=== PATIENT | female | born 1955 | race Caucasian/White ===

== ENCOUNTER → 2017-09-15 | Outpatient (CLI) | payer OTHER ==
--- NOTE | 2017-09-15 12:01 | USB ---
Reason for exam: clinical finding. History: Patient is postmenopausal. Family history of premenopausal breast cancer in aunt at age 40, breast cancer in 2 other aunts, premenopausal breast cancer in cousin, and breast cancer in grandmother at age 50. Benign stereotactic core biopsy of the right breast, July 03, 1999. Core biopsy of the right breast. 2 excisional biopsies of the right breast. Indicated problem(s): non-bloody discharge in the left breast. Physical Findings: Nurse Summary: left breast movable palpable 2 o'clock 0.5 x 1cm, tender, bilateral tenderness (nurse ts). US Breast LT Left breast ultrasound includes all four quadrants, the retroareolar region and axilla. Finding demonstrates a 0.2 x 0.2 x 0.4cm lesion too small to characterize at 1 o'clock and a 0.8 x 0.3 x 1.0cm mixed lesion at the nipple. Attempt for 2 site biopsy as the larger mass could represent a dilate duct with complex debris/hemorrhage. These results were verbally communicated with the patient and result sheet given to the patient on 09/15/17. ASSESSMENT: Suspicious, BI-RAD 4 RECOMMENDATION: Ultrasound core biopsy of the left breast. (2 sites) Called Dr. Fraga with mammographic findings and has scheduled an appointment for the patient for 10/13/17 at 10:[address] Maharaj. Biopsy scheduled for 09/21/17 at 2:20. PRELIMINARY REPORT CALLED AND FAXED TO DR. MAHARAJ ON 09/15/17.
== END | disposition home or self-care (01) ==
LOC: RADUSWWP 09:43
PROVIDERS: ATTEND Family Medicine
DX: N64.4 Mastodynia (principal)

== ENCOUNTER → 2017-09-21 | Day surgery (SDC) | payer OTHER ==
[2017-09-21 13:45] VITALS: BP 123/71; PULSE 75; RESP 12; TEMP 98
--- NOTE | 2017-09-21 15:13 | USB ---
EXAMINATION TYPE: US discontinued breast bx LT DATE OF EXAM: 09/21/2017 COMPARISON: Prior ultrasound of the left breast CLINICAL HISTORY: 2 x 2 x 4 mm mass at the 1:00 position in the region of palpable abnormality per nu rsing on the prior exam was unable to be redemonstrated by 2 sonographers including the initial sonog rapher on the exam of 09/15/2017, and per the nurse who originally palpated the mass as well as by myszion Meneses. This may represent a collapsed/resolved cyst and short-term six-month follow-up is recom mended to ensure resolution. Additionally the second retroareolar questionable intraductal mass versu s dilated duct with debris/hemorrhage in the retroareolar region upon repeat imaging at real-time wit h the escalator constructor and myself appears as multiple septations without distinct mass. No vascularity is seen. No suspicious area to biopsy was identified. Therefore findings were discussed with the patient . Additionally the patient described left breast clear nipple discharge once. The patient was instruc yasmeen to closely monitor this nipple discharge and is reproducible ductogram could be performed. IMPRESSION: BI-RADS 2-No identifiable suspicious sonographic mass. No sonographic evidence of malign dann. Clinical management is recommended for this patient's left nipple discharge and if persistent d uctogram should be performed.
== END ==
LOC: RADUSWWP 13:19
PROVIDERS: ATTEND Surgery
DX: N63.21 Unspecified lump in the left breast, upper outer quadrant (principal); R92.8 Other abnormal and inconclusive findings on diagnostic imaging of breast; N64.52 Nipple discharge; Z53.8 Procedure and treatment not carried out for other reasons

== ENCOUNTER → 2017-11-04 | Outpatient (CLI) | payer OTHER | END | disposition home or self-care (01) | LOC: LABWHC1 11:17 | DX: R19.4 Change in bowel habit (principal) | CPT/HCPCS: 82272; 83630; 87324 ==

== ENCOUNTER 2017-12-26 11:46 | Day surgery (SDC) | payer OTHER ==
[2017-12-22 10:42] VITALS: BMI 19.5
[~2017-12-26 11:46] MED LIST: LACTATED RINGERS 1,000 ML IV SCH
[2017-12-26 13:14] VITALS: RESP 16; TEMP 98.1
[2017-12-26] MEDS ORDERED: LIDOCAINE 1% 20 ML VIAL (10MG/ML) FOR IV START INTRADERMA ONE (13:29)
[2017-12-26] MEDS ORDERED: PROPOFOL 10 MG/ML 20 ML VIAL IV ONE (14:49)
[2017-12-26] MEDS ORDERED: LIDOCAINE 1% INJ 10MG/ML (20 ML MDV) ONE (14:49)
[2017-12-26 15:48] VITALS: BP 136/67; PULSE 73
--- NOTE | 2017-12-27 00:17 | P.PCN ---
Date of Procedure: 12/26/17 Procedure(s) Performed: Procedure: 1. Esophagogastroduodenoscopy and biopsy. 2. Colonoscopy and biopsy. Preoperative diagnosis: Abdominal pain, weight loss and diarrhea. Postoperative diagnosis: 1. Mild gastritis and duodenitis. 2. Small sliding hiatal hernia with no obvious esophagitis or complicated reflux disease. 3. Low- grade internal hemorrhoids without bleeding, otherwise, normal colon and terminal ileum. 4. Small submucal lipoma splenic flexure, biopsied. 5. Biopsies also obtained from the duodenum, antrum, esophagus, terminal ileum and right colon. Preparation: HalfLytely prep. Sedation: Was provided by anesthesia. Brief clinical history: The patient is a 62-year-old female who was evaluated in the office regarding abdominal issues and change in bowel habits, weight loss and intermittent rectal bleeding. She had a prior evaluation around 2 years ago that revealed a flat right colon polyp which was snared and removed piecemeal. This evaluation is scheduled to rule out inflammatory bowel disease , celiac disease or neoplasia. Procedure: With the patient on her left lateral decubitus position and after informed consent and adequate sedation, I passed a Olympus-GIF 160 video upper endoscope through the cricopharyngeus down the esophagus. The esophagus appeared healthy with no obvious erosions or ulcers GE junction was around 38- 39 cm from the incisors. There was a less than 1 cm sliding type hiatal hernia but no strictures or Alejandre's esophagus. The endoscope was then passed into the stomach which was insufflated with air and inspected in detail including the retroflex view in the cardia. There was some mottling and erythema in the antrum but no ulcers or erosions. No pyloric channel ulcers. Duodenal bulb, post bulbar area and descending duodenum were inspected and there was minimal mottling and erythema in the duodenal bulb without ulcers or erosions. I obtained multiple biopsies from the duodenum, antrum and esophagus then the endoscope was withdrawn and I then proceeded with the colonoscopy. Perianal area did not show any fissures or fistulas. There were no masses felt on digital rectal examination. The Olympus CFQ 160L video colonoscope was then inserted in the rectum in the usual fashion and advanced to the cecum. I intubated the ileocecal valve and examined the terminal ileum. Terminal ileum and colon appeared healthy with no edema, erythema, friability, ulceration, exudation or spontaneous bleeding. There was a small submucosal polypoid area around the splenic flexure consistent with lipoma which was biopsied but there were no large polyps or cancer. I obtained biopsies from the terminal ileum and colon. I retroflexed the endoscope in the rectum before the endoscope was withdrawn. Low-grade internal hemorrhoids were noted, as previously described, but there was no bleeding. Disposition: The patient tolerated the procedure well. Plan: The patient was reassured. Will await biopsy results. Discussed dietary measures and local care for hemorrhoids. I would see her in follow-up and keep you updated on her her progress. I anticipate repeating her colonoscopy in 5 years. She will follow-up with you as planned.
== END 2017-12-26 16:19 | disposition home or self-care (01) ==
LOC: ORWHC2ENDO 11:46
DX: K31.9 Disease of stomach and duodenum, unspecified (principal); K21.0 Gastro-esophageal reflux disease with esophagitis; R59.9 Enlarged lymph nodes, unspecified; K52.831 Collagenous colitis; K29.80 Duodenitis without bleeding; K29.70 Gastritis, unspecified, without bleeding; K44.9 Diaphragmatic hernia without obstruction or gangrene; K64.8 Other hemorrhoids; D17.79 Benign lipomatous neoplasm of other sites; R01.1 Cardiac murmur, unspecified; F17.210 Nicotine dependence, cigarettes, uncomplicated; Z85.828 Personal history of other malignant neoplasm of skin; Z88.5 Allergy status to narcotic agent; Z79.899 Other long term (current) drug therapy
CPT/HCPCS: 88305; 45380; 43239; J2001; J2704

== ENCOUNTER → 2022-05-05 | Outpatient (CLI) | payer BC ==
--- NOTE | 2022-05-05 17:08 | MM ---
Reason for Exam: Screening (asymptomatic). Last mammogram was performed 2 year(s) and 7 month(s) ago. Patient History: Menarche at age 10. First Full-Term at age 17. Hysterectomy at age 32. Postmenopausal. Core Biopsy on the Right side. Excisional Biopsy on the Right side. Excisional Biopsy on the Right side. 07/03/1999, Benign Stereotactic Core Biopsy on the right side. 09/21/2017, US discontinued breast bx LT on the left side. Maternal grandmother had breast cancer, age 50. Maternal cousin had breast cancer. Maternal aunt had breast cancer, age 40. Maternal aunt had breast cancer. Maternal aunt had breast cancer. Risk Values: Yoli 5 year model risk: 1.9%. NCI Lifetime model risk: 7.7%. Prior Study Comparison: 10/27/2015 Bilateral Screening Mammogram, [facility]. 06/15/2017 Bilateral Screening Mammogram, [facility]. 10/03/2019 Bilateral Screening Mammogram, [facility]. Tissue Density: The breast tissue is heterogeneously dense. This may lower the sensitivity of mammography. Findings: Analyzed By CAD. Pattern appears symmetrical and stable. Biopsy clip is within the right breast. Benign punctate scattered calcifications are present No suspicious groups of microcalcifications, spiculated or lobular masses, architectural distortion or other secondary signs of malignancy are mammographically apparent. Overall Assessment: Benign, BI-RAD 2 Management: Screening Mammogram of both breasts in 1 year. A negative mammogram report should not preclude additional follow up of suspicious palpable abnormalities. Patient should continue monthly self breast exam. A clinical breast exam by your physician is recommended on an annual basis and results should be correlated with mammographic findings. Electronically signed and approved by: Fuad Botello D.O. Radiologis
== END | disposition home or self-care (01) ==
LOC: RADMAMWWP 07:18
PROVIDERS: ATTEND Family Medicine
DX: Z12.31 Encounter for screening mammogram for malignant neoplasm of breast (principal); Z78.0 Asymptomatic menopausal state; Z80.3 Family history of malignant neoplasm of breast
CPT/HCPCS: 77067

== ENCOUNTER → 2023-12-08 | Outpatient (CLI) | payer BC ==
--- NOTE | 2023-12-12 08:35 | MM ---
Reason for Exam: Screening (asymptomatic). Last mammogram was performed 1 year(s) and 7 month(s) ago. Patient History: Menarche at age 10. First Full-Term at age 17. Hysterectomy at age 32. Postmenopausal. Core Biopsy on the Right side. Excisional Biopsy on the Right side. Excisional Biopsy on the Right side. 07/03/1999, Benign Stereotactic Core Biopsy on the right side. 09/21/2017, US discontinued breast bx LT on the left side. Maternal grandmother had breast cancer, age 50. Maternal cousin had breast cancer. Maternal aunt had breast cancer, age 40. Maternal aunt had breast cancer. Risk Values: Yoli 5 year model risk: 2.0%. NCI Lifetime model risk: 7.1%. Prior Study Comparison: 06/15/2017 Bilateral Screening Mammogram, [facility]. 10/03/2019 Bilateral Screening Mammogram, [facility]. 05/05/2022 Bilateral MG screening mammo w CAD, [facility]. Tissue Density: The breasts are heterogeneously dense, which may obscure small masses. Findings: Analyzed By CAD. Right breast biopsy clip. Right breast: There is no suspicious group of microcalcifications or new suspicious mass. Left breast: Asymmetry left breast lateral aspect middle depth on CC view approximately 5.2 cm from the nipple. Not appreciated on MLO view. Overall Assessment: Incomplete: need additional imaging evaluation, BI-RAD 0 Management: Diagnostic Mammogram of the left breast. [facility] will attempt to contact patient to return for supplemental views and ultrasound if indicated. Patient should continue monthly self-breast exams. A clinical breast exam by your physician is recommended on an annual basis. This exam should not preclude additional follow-up of suspicious palpable abnormalities. Note on Yoli scores and lifetime risk: 1. A Yoli score greater than 3% is considered moderate risk. If this is the case, consider specialist referral to assess eligibility for a risk reducing agent. 2. If overall lifetime risk for the development of breast cancer is 20% or higher, the patient may qualify for future screening with alternating mammogram and breast MRI. Electronically signed and approved by: Darrell Child DO
== END | disposition home or self-care (01) ==
LOC: RADMAMWWP 07:28
PROVIDERS: ATTEND Family Medicine
DX: Z12.31 Encounter for screening mammogram for malignant neoplasm of breast (principal); Z78.0 Asymptomatic menopausal state; Z80.3 Family history of malignant neoplasm of breast
CPT/HCPCS: 77063; 77067

== ENCOUNTER → 2023-12-13 | Outpatient (CLI) | payer BC ==
--- NOTE | 2023-12-13 09:06 | MM ---
Reason for Exam: Additional evaluation requested from abnormal screening. Last screening mammogram was performed less than 1 month ago. Patient History: Menarche at age 10. First Full-Term at age 17. Hysterectomy at age 32. Postmenopausal. Core Biopsy on the Right side. Excisional Biopsy on the Right side. Excisional Biopsy on the Right side. 07/03/1999, Benign Stereotactic Core Biopsy on the right side. 09/21/2017, US discontinued breast bx LT on the left side. Maternal grandmother had breast cancer, age 50. Maternal cousin had breast cancer. Maternal aunt had breast cancer, age 40. Maternal aunt had breast cancer. Risk Values: Yoli 5 year model risk: 2.0%. NCI Lifetime model risk: 7.1%. Prior Study Comparison: 10/27/2015 Bilateral Screening Mammogram, [facility]. 06/15/2017 Bilateral Screening Mammogram, [facility]. 10/03/2019 Bilateral Screening Mammogram, [facility]. 05/05/2022 Bilateral MG screening mammo w CAD, [facility]. 12/08/2023 Bilateral MG 3D screening mammo w/cad, [facility]. Tissue Density: Left: The breasts are heterogeneously dense, which may obscure small masses. Findings: Analyzed By CAD. The pattern is symmetrical. Multiple punctate calcifications are present bilaterally. No suspicious persistent asymmetric density is identified. No suspicious groups of microcalcifications, spiculated or lobular masses, architectural distortion or other secondary signs of malignancy are mammographically apparent. Overall Assessment: Benign, BI-RAD 2 Management: Screening Mammogram of both breasts in 1 year. A negative mammogram report should not preclude additional follow up of suspicious palpable abnormalities. Patient should continue monthly self breast exam. A clinical breast exam by your physician is recommended on an annual basis and results should be correlated with mammographic findings. Note on Yoli scores and lifetime risk: 1. A Yoli score greater than 3% is considered moderate risk. If this is the case, consider specialist referral to assess eligibility for a risk reducing agent. 2. If overall lifetime risk for the development of breast cancer is 20% or higher, the patient may qualify for future screening with alternating mammogram and breast MRI. Electronically signed and approved by: Fuad Botello D.O. Radiologis
== END | disposition home or self-care (01) ==
LOC: RADMAMWWP 07:56
PROVIDERS: ATTEND Family Medicine
DX: R92.332 Mammographic heterogeneous density, left breast (principal); Z78.0 Asymptomatic menopausal state; Z80.3 Family history of malignant neoplasm of breast
CPT/HCPCS: 77061; 77065